=== PATIENT | female | born 1985 | race Caucasian/White ===

== ENCOUNTER 2019-10-10 07:15 | Emergency (ER) | payer MEDICAID ==
[~2019-10-10] VITALS: Ht 170.2 cm; Wt 140.0 kg
[2019-10-10] MEDS ORDERED: pantoprazole 40 MG vial IV ONE (07:25)
[2019-10-10] MEDS ORDERED: normal saline 1000ML IV soln IVB ONE (07:25)
[2019-10-10] MEDS ORDERED: ondansetron/PF 4mg/2ml inj IV ONE (07:25)
[2019-10-10] MEDS ORDERED: famotidine/PF 10 mg/ml inj IV ONE (07:25)
[2019-10-10] MEDS ORDERED: meclizine 12.5mg tablet PO ONE (07:40)
[2019-10-10] MEDS ORDERED: metoclopramide 5 mg/ml inj IV ONE (08:15)
--- NOTE | 2019-10-10 08:15 | NUR ---
Discussed pt's continued emesis following Zofran administration; new order for Reglan received.
[2019-10-10 08:25] LABS: BASOPHILS % (AUTO) 0.5 % (0-1); EOSINOPHILS # (AUTO) 0.3 X10'3 (0-0.9); EOSINOPHILS % (AUTO) 2.8 % (0-6); HEMATOCRIT 42.5 % (35.0-45.0); HEMOGLOBIN 14.6 g/dl (12.0-16.0); LYMPHOCYTES # (AUTO) 2.4 X10'3 (1.1-4.8); LYMPHOCYTES % (AUTO) 22.6 % (21-51); MEAN CORPUSCULAR HEMOGLOBIN 31.2 PG (27.0-31.0); MEAN CORPUSCULAR HGB CONC 34.3 g/dL (33.0-36.5); MEAN CORPUSCULAR VOLUME 91.1 FL (78-98); MEAN PLATELET VOLUME 9.7 FL (7.4-10.4); MONOCYTES # (AUTO) 0.7 X10'3 (0-0.9); MONOCYTES % (AUTO) 6.5 % (2-12); NEUTROPHILS # (AUTO) 7.1 X10'3 (1.8-7.7); NEUTROPHILS % (AUTO) 67.6 % (42-75); PLATELET COUNT 297 X10'3 (140-440); RED BLOOD COUNT 4.66 X10'6 (4.20-5.60); RED CELL DISTRIBUTION WIDTH 13.9 % (11.5-14.5); WHITE BLOOD COUNT 10.5 X10'3 (4.5-11.0)
[2019-10-10 08:47] LABS: ALANINE AMINOTRANSFERASE 24 U/L (12-78); ALBUMIN 3.7 G/DL (3.4-5.0); ALKALINE PHOSPHATASE 64 IU/L (46-116); ANION GAP 9 (8-16); ASPARTATE AMINO TRANSFERASE 16 U/L (10-37); BILIRUBIN,TOTAL 0.4 MG/DL (0.1-1.0); BLOOD UREA NITROGEN 10 MG/DL (7-18); BUN/CREATININE RATIO 10.6 (6.6-38.0); CALCIUM 8.9 MG/DL (8.5-10.1); CHLORIDE 103 MMOL/L (99-107); CREATININE 0.94 MG/DL (0.40-0.90); GLUCOSE 103 MG/DL (70-104); LIPASE 228 U/L (73-393); POTASSIUM 3.6 MMOL/L (3.5-5.1); SODIUM 140 MMOL/L (135-145); TOTAL CARBON DIOXIDE 27.8 MMOL/L (24-32); TOTAL PROTEIN 7.5 G/DL (6.4-8.2); eGFR 68 ML/MIN
--- NOTE | 2019-10-10 08:58 | NUR ---
PATIENT RESTING ON GURNEY WITH EYES CLOSED. STILL C/O NAUSEA AND DIZZINESS. IV PATENT AND INFUSING WELL.
[2019-10-10] MEDS ORDERED: AMOX-117 PO (09:06)
[2019-10-10] MEDS ORDERED: PROC25SU31 RC (09:28)
[2019-10-10] MEDS ORDERED: PROC-8 PO (09:28)
[2019-10-10 09:49] VITALS: BP 129/84
== END 2019-10-10 09:52 | disposition home or self-care (01) ==
LOC: ER 07:15
DX: R42 Dizziness and giddiness (principal); H92.01 Otalgia, right ear; G89.29 Other chronic pain; R11.2 Nausea with vomiting, unspecified; F12.90 Cannabis use, unspecified, uncomplicated; Z98.890 Other specified postprocedural states; Z88.8 Allergy status to other drugs, medicaments and biological substances; Z79.2 Long term (current) use of antibiotics; Z79.899 Other long term (current) drug therapy
CPT/HCPCS: 36415; 70450; 70480; 80053; 83690; 85025; 96374; 96375; 99285; C9113; J2405; J2765; J3490; J7030

== ENCOUNTER 2019-10-14 10:26 | Emergency (ER) | payer MEDICAID ==
[~2019-10-14] VITALS: Ht 170.2 cm; Wt 136.4 kg
[~2019-10-14 10:26] MED LIST: AMOX-117 PO; PROC-8 PO; PROC25SU31 RC
[2019-10-14 10:55] LABS: BASOPHILS % (AUTO) 0.4 % (0-1); EOSINOPHILS # (AUTO) 0.2 X10'3 (0-0.9); EOSINOPHILS % (AUTO) 2.1 % (0-6); HEMATOCRIT 43.5 % (35.0-45.0); HEMOGLOBIN 14.5 g/dl (12.0-16.0); LYMPHOCYTES # (AUTO) 1.7 X10'3 (1.1-4.8); LYMPHOCYTES % (AUTO) 16.9 % (21-51); MEAN CORPUSCULAR HEMOGLOBIN 30.6 PG (27.0-31.0); MEAN CORPUSCULAR HGB CONC 33.3 g/dL (33.0-36.5); MEAN CORPUSCULAR VOLUME 91.7 FL (78-98); MEAN PLATELET VOLUME 9.6 FL (7.4-10.4); MONOCYTES # (AUTO) 0.6 X10'3 (0-0.9); MONOCYTES % (AUTO) 5.9 % (2-12); NEUTROPHILS # (AUTO) 7.7 X10'3 (1.8-7.7); NEUTROPHILS % (AUTO) 74.7 % (42-75); PLATELET COUNT 289 X10'3 (140-440); RED BLOOD COUNT 4.74 X10'6 (4.20-5.60); RED CELL DISTRIBUTION WIDTH 14.1 % (11.5-14.5); WHITE BLOOD COUNT 10.3 X10'3 (4.5-11.0)
[2019-10-14 11:09] LABS: ALANINE AMINOTRANSFERASE 51 U/L (12-78); ALBUMIN 3.4 G/DL (3.4-5.0); ALBUMIN/GLOBULIN RATIO 0.8 (1.1-1.5); ALKALINE PHOSPHATASE 62 IU/L (46-116); ANION GAP 8 (8-16); ASPARTATE AMINO TRANSFERASE 18 U/L (10-37); BILIRUBIN,TOTAL 0.3 MG/DL (0.1-1.0); BLOOD UREA NITROGEN 10 MG/DL (7-18); BUN/CREATININE RATIO 11.9 (6.6-38.0); CALCIUM 8.3 MG/DL (8.5-10.1); CHLORIDE 108 MMOL/L (99-107); CREATININE 0.84 MG/DL (0.40-0.90); GLUCOSE 120 MG/DL (70-104); LIPASE 96 U/L (73-393); POTASSIUM 3.9 MMOL/L (3.5-5.1); SODIUM 141 MMOL/L (135-145); TOTAL CARBON DIOXIDE 24.7 MMOL/L (24-32); TOTAL PROTEIN 7.6 G/DL (6.4-8.2); eGFR 77 ML/MIN
[2019-10-14] MEDS ORDERED: LORazepam 0.5 MG tablet PO STA (11:26)
[2019-10-14] MEDS ORDERED: ondansetron 4mg rapidly disintigrating tab PO ONE (11:30)
[2019-10-14] MEDS ORDERED: pseudoephedrine 30mg tablet PO ONE (11:30)
[2019-10-14] MEDS ORDERED: metoclopramide 10mg tablet PO ONE (12:10)
[2019-10-14] MEDS ORDERED: ONDA4TAB6 PO (12:43)
[2019-10-14] MEDS ORDERED: AMOX-580 PO (12:43)
[2019-10-14] MEDS ORDERED: LORA-268 PO (12:43)
[2019-10-14 12:51] VITALS: BP 141/91
== END 2019-10-14 12:52 | disposition home or self-care (01) ==
LOC: ER 10:26
DX: R42 Dizziness and giddiness (principal); R11.0 Nausea; H92.01 Otalgia, right ear; F12.90 Cannabis use, unspecified, uncomplicated; Z87.442 Personal history of urinary calculi; Z98.890 Other specified postprocedural states; Z88.8 Allergy status to other drugs, medicaments and biological substances; Z79.899 Other long term (current) drug therapy
CPT/HCPCS: 36415; 80053; 83690; 85025; 99284

== ENCOUNTER 2019-10-31 07:21 | Emergency (ER) | payer MEDICAID ==
[~2019-10-31] VITALS: Ht 170.2 cm; Wt 141.9 kg
[~2019-10-31 07:21] MED LIST changes: -AMOX-117 PO; +LORA-268 PO; +ONDA4TAB6 PO
[2019-10-31 07:26] VITALS: BP 131/87
[2019-10-31] MEDS ORDERED: diphenhydrAMINE 50 mg/ml inj IM ONE (08:05)
[2019-10-31] MEDS ORDERED: metoclopramide 5 mg/ml inj IM ONE (08:05)
== END 2019-10-31 10:24 | disposition home or self-care (01) ==
LOC: ER 07:22
DX: H81.391 Other peripheral vertigo, right ear (principal); F12.90 Cannabis use, unspecified, uncomplicated; Z98.890 Other specified postprocedural states; Z88.8 Allergy status to other drugs, medicaments and biological substances; Z79.899 Other long term (current) drug therapy
CPT/HCPCS: 96372; 99284; J1200; J2765

== ENCOUNTER 2021-07-30 11:54 | Day surgery (SDC) | payer MEDICAID ==
[~2021-07-30] VITALS: Ht 167.6 cm; Wt 142.0 kg
[~2021-07-30 11:54] MED LIST changes: -PROC25SU31 RC
[2021-07-30 12:05] VITALS: BP 112/75
[2021-07-30] MEDS ORDERED: LIDOcaine Viscous 15ml cup ONE (12:37)
[2021-07-30] MEDS ORDERED: MIDAZolam 1 MG/ML 5ML VIAL ONE (12:37)
[2021-07-30] MEDS ORDERED: fentaNYL/PF 50MCG/1 ML 2ML syringe ONE (12:37)
[2021-07-30 13:29] VITALS: BP 135/96
[2021-07-30 13:39] VITALS: BP 136/86
[2021-07-30 13:49] VITALS: BP 132/86
[2021-07-30 13:59] VITALS: BP 131/95
== END 2021-07-30 14:02 | disposition home or self-care (01) ==
LOC: GI LAB 11:54
PROVIDERS: ATTEND Internal Medicine Gastroenterology
DX: Z01.818 Encounter for other preprocedural examination (principal); K29.50 Unspecified chronic gastritis without bleeding; K20.80 Other esophagitis without bleeding; E66.01 Morbid (severe) obesity due to excess calories; Z68.43 Body mass index [BMI] 50.0-59.9, adult; F12.90 Cannabis use, unspecified, uncomplicated
CPT/HCPCS: 43239; 99152; J2250; J3010; J7030; Z7512; A4620

== ENCOUNTER 2021-12-01 00:12 | Emergency (ER) | payer MEDICAID ==
[~2021-12-01] VITALS: Ht 167.6 cm; Wt 126.3 kg
[2021-12-01 00:50] VITALS: BP 118/85
[2021-12-01 01:31] LABS: URINE HCG NEGATIVE (NEG)
[2021-12-01 01:44] LABS: ALANINE AMINOTRANSFERASE 21 U/L (12-78); ALBUMIN 3.7 G/DL (3.4-5.0); ALBUMIN/GLOBULIN RATIO 0.9 (1.1-1.5); ALKALINE PHOSPHATASE 71 IU/L (46-116); ANION GAP 7 (8-16); ASPARTATE AMINO TRANSFERASE 8 U/L (10-37); BASOPHILS # (AUTO) 0.1 X10'3 (0-0.2); BASOPHILS % (AUTO) 0.4 % (0-1); BILIRUBIN,TOTAL 0.6 MG/DL (0.1-1.0); BLOOD UREA NITROGEN 6 MG/DL (7-18); CALCIUM 8.7 MG/DL (8.5-10.1); CHLORIDE 106 MMOL/L (99-107); CREATININE 0.86 MG/DL (0.40-0.90); EOSINOPHILS # (AUTO) 0.5 X10'3 (0-0.9); EOSINOPHILS % (AUTO) 3.2 % (0-6); GLUCOSE 98 MG/DL (70-104); HEMATOCRIT 43.1 % (35.0-45.0); HEMOGLOBIN 14.5 g/dl (12.0-16.0); LIPASE 51 U/L (73-393); LYMPHOCYTES # (AUTO) 3.1 X10'3 (1.1-4.8); LYMPHOCYTES % (AUTO) 21.7 % (21-51); MEAN CORPUSCULAR HGB CONC 33.7 g/dL (33.0-36.5); MEAN CORPUSCULAR VOLUME 92.1 FL (78-98); MEAN PLATELET VOLUME 10.5 FL (7.4-10.4); NEUTROPHILS # (AUTO) 9.5 X10'3 (1.8-7.7); NEUTROPHILS % (AUTO) 67.7 % (42-75); PLATELET COUNT 256 X10'3 (140-440); POTASSIUM 3.6 MMOL/L (3.5-5.1); RED BLOOD COUNT 4.68 X10'6 (4.20-5.60); RED CELL DISTRIBUTION WIDTH 14.2 % (11.5-14.5); SODIUM 140 MMOL/L (135-145); TOTAL CARBON DIOXIDE 26.6 MMOL/L (24-32); TOTAL PROTEIN 7.6 G/DL (6.4-8.2); WHITE BLOOD COUNT 14.1 X10'3 (4.5-11.0); eGFR 74 ML/MIN
[2021-12-01 02:47] LABS: CLARITY,URINE SLIGHTLY CLOUDY (Clear); COLOR,URINE YELLOW (Yellow); GLUCOSE, URINE NEGATIVE (Neg); KETONES,URINE NEGATIVE (Neg); LEUKOCYTE ESTERASE ,URINE LARGE (Neg); NITRITES, URINE POSITIVE (Neg); OCCULT BLOOD,URINE LARGE (Neg); PROTEIN,URINE 30 mg/dl (Neg); UROBILINOGEN,URINE 0.2 E.U/dL (0.2-1.0)
[2021-12-01 02:48] LABS: UA COLLECTION TYPE CLN CATCH MIDSTREAM
[2021-12-01 02:55] LABS: BACTERIA,URINE 3+ /HPF (Neg); MUCUS STRANDS FEW /LPF (Neg); SQUAMOUS EPITHELIAL CELL,UR FEW /LPF (FEW); WBC,URINE TNTC /HPF (0-4)
[2021-12-01] MEDS ORDERED: cephalexin 500mg capsule PO ONE (07:15)
[2021-12-01] MEDS ORDERED: phenazopyridine 100mg tablet PO ONE (07:15)
[2021-12-01] MEDS ORDERED: CEPH-585 PO (08:37)
[2021-12-01] MEDS ORDERED: PHEN-824 PO (08:37)
== END 2021-12-01 09:14 | disposition home or self-care (01) ==
LOC: ER 00:13
DX: N39.0 Urinary tract infection, site not specified (principal); F12.10 Cannabis abuse, uncomplicated; Z87.81 Personal history of (healed) traumatic fracture; Z87.442 Personal history of urinary calculi; Z88.8 Allergy status to other drugs, medicaments and biological substances; Z79.899 Other long term (current) drug therapy; Z79.2 Long term (current) use of antibiotics
CPT/HCPCS: 36415; 76770; 80053; 81001; 81025; 83690; 85025; 87077; 87088; 87186; 99284